=== PATIENT | male | born 1980 | race African-American/Black ===

== ENCOUNTER 2017-11-22 10:07 | Emergency (ER) | payer SELFPAY ==
[~2017-11-22] VITALS: Ht 188 cm; Wt 113.4 kg
[~2017-11-22 10:07] MED LIST: ALPR1TAB2
--- NOTE | 2017-11-22 10:08 | NUR ---
PT BIBA TO BED 2.
[2017-11-22 10:09] VITALS: BP_SYST 112; BP_SYST 147; BP_SYST 192; BP_DIAS 112; BP_DIAS 54; BP_DIAS 85
--- NOTE | 2017-11-22 10:12 | NUR ---
37M BIBA C/O LEFT FLANK PAIN, SHARP, NON-RADIATING, 10/10 X THIS MORNING; PER [facility], PT D/C FROM [facility] FOR RT FLANK PAIN THIS MORNING; PT STATES NO N/V/D AT THIS TIME; PT AA&OX4, BL LUNG SOUNDS CLEAR, RR EVEN/UNLABORED, SKIN IS WARM/DRY/INTACT AT THIS TIME; PT RESTING IN BED WITH HOB ELEVATED AND IN LOWEST POSITION; POSITIONED FOR COMFORT; ER MD MADE AWARE OF STATUS. WILL CONTINUE TO MONITOR.
[2017-11-22] MEDS ORDERED: NACL 0.9% 1,000 ML IV ONE (10:15)
[2017-11-22] MEDS ORDERED: KETOROLAC 30 MG/ML VIAL IVP ONE (10:15)
--- NOTE | 2017-11-22 10:17 | NUR ---
ER MD DR. MCGARRY EVALUATING PT AT BEDSIDE.
--- NOTE | 2017-11-22 10:40 | NUR ---
Cornelia springer in ED - 11/22/17 at 1048 by MED1 PT TAKEN TO CT VIA W/C ACCOMPANIED BY PACKAGING CLERK.
[2017-11-22 10:44] LABS: BASOPHILS # (AUTO) 0.3 K/uL (0.00-0.22); BASOPHILS % (AUTO) 2.7 % (0.0-2.0); EOSINOPHILS # (AUTO) 0.3 K/uL (0-0.4); EOSINOPHILS % (AUTO) 2.7 % (0.0-4.0); HEMATOCRIT 39.3 % (36-52); HEMOGLOBIN 12.6 g/dL (12.0-18.0); LYMPHOCYTES % (AUTO) 20.4 % (20.5-51.1); MEAN CORPUSCULAR HEMOGLOBIN 27 pg (27-31); MEAN CORPUSCULAR HGB CONC 32 g/dL (33-37); MEAN CORPUSCULAR VOLUME 85 fL (80-94); MONOCYTES # (AUTO) 1.3 K/uL (0.8-1.0); MONOCYTES % (AUTO) 13.2 % (1.7-9.3); NEUTROPHILS # (AUTO) 6.1 K/uL (1.8-7.7); PLATELET COUNT (AUTO) 257 K/uL (140-450); RED BLOOD CELL COUNT(AUTO) 4.65 MIL/uL (4.20-6.10)
[2017-11-22 10:53] LABS: ANION GAP 12.4 (8-16); CARBON DIOXIDE 27.4 mmol/L (21-32); CREATININE 1.4 mg/dL (0.7-1.3); POTASSIUM 3.8 mmol/L (3.5-5.1)
[2017-11-22 11:00] LABS: ALBUMIN 4.1 g/dL (3.4-5.0); TOTAL BILIRUBIN 1.3 mg/dL (0.0-1.0)
--- NOTE | 2017-11-22 11:03 | NUR ---
PT TAKEN TO CT VIA W/C ACCOMPANIED BY VOCATIONAL NURSING INSTRUCTOR.
[2017-11-22] MEDS ORDERED: MORPHINE SULFATE 4 MG/ML SYR IVP ONE (11:30)
--- NOTE | 2017-11-22 12:10 | NUR ---
IV removed, catheter intact and site benign. Applied folded 4x4 gauze and tape to stop bleeding. PT TOLERATED PROCEDURE WELL.
[2017-11-22 12:12] VITALS: BP 115/59
--- NOTE | 2017-11-22 12:12 | NUR ---
Patient discharged with v/s stable. Written and verbal after care instructions given and explained. Patient alert, oriented and verbalized understanding of instructions. Ambulatory with steady gait. All questions addressed prior to discharge. ID band removed. Patient advised to follow up with PMD. Rx of FLOMAX 0.4MG CAP, MOTRIN 800MG TAB, NORCO 5MG-325MG TAB given. Patient educated on indication of medication including possible reaction and side effects. Opportunity to ask questions provided and answered.
== END 2017-11-22 12:12 | disposition home or self-care (01) ==
LOC: MED 10:07
DX: N20.0 Calculus of kidney (principal); F17.210 Nicotine dependence, cigarettes, uncomplicated; Z79.899 Other long term (current) drug therapy
CPT/HCPCS: 36415; 74176; 80053; 81002; 83690; 85025; 96374; 96375; 99285; J1885; J2270; J7030

== ENCOUNTER 2019-10-02 04:29 | Emergency (ER) | payer OTHER ==
[~2019-10-02] VITALS: Ht 188 cm; Wt 125.6 kg
[2019-10-02 04:30] VITALS: BP 111/53
--- NOTE | 2019-10-02 05:30 | NUR ---
ASSESSMENT COMPLETED AT BEDSIDE. PATIENT SITTING UP IN BED. BED LOW AND LOCKED. BIB SELF REPORTING BILATERAL EYE PAIN AND BURNING WITH REDNESS FOR THREE DAYS WORSE TODAY. STATES HE HAS HAD DISCHARGE FROM BOTH EYES WELL. STATES HE HAS ALSO HAD A COLD AND CONGESTION. COUGHING UP YELLOW SPUTUM. NO CHANGE IN VISION STATED. PERRL. -NVD, CP, SOB, FEVERS REPORTED.
--- NOTE | 2019-10-02 05:32 | NUR ---
PT AMBULATED TO ER BED 05
--- NOTE | 2019-10-02 07:17 | NUR ---
Dr. Reynolds is evaluating the patient at bedside.
--- NOTE | 2019-10-02 07:22 | NUR ---
39 Y/O M C/C OF RED EYES X4 DAYS. PER PT DID NOT TOUCH OR EAT ANYTHING. PT NKA. NO MEDICAL HX. NO RX. NO V/D/N. SIDE RAIL X1.
--- NOTE | 2019-10-02 07:29 | NUR ---
OBTAINED REPORT FROM AINSLEY VAZQUEZ FOR CONTINUITY OF CARE
[2019-10-02 07:52] VITALS: BP 134/76
--- NOTE | 2019-10-02 07:52 | NUR ---
Patient discharged with v/s stable. Written and verbal after care instructions given and explained. Patient alert, oriented and verbalized understanding of instructions. Ambulatory with steady gait. All questions addressed prior to discharge. ID band removed. Patient advised to follow up with PMD. Rx of ERYTHROMYCIN, CLARITIN given. Patient educated on indication of medication including possible reaction and side effects. Opportunity to ask questions provided and answered.
== END 2019-10-02 07:52 | disposition home or self-care (01) ==
LOC: MED 04:29
DX: H10.89 Other conjunctivitis (principal); B96.89 Other specified bacterial agents as the cause of diseases classified elsewhere; Z79.899 Other long term (current) drug therapy
CPT/HCPCS: 99283

== ENCOUNTER 2020-10-08 00:36 | Emergency (ER) | payer OTHER ==
[~2020-10-08] VITALS: Ht 188 cm; Wt 113.4 kg
[2020-10-08 01:15] VITALS: BP 134/87
--- NOTE | 2020-10-08 01:18 | NUR ---
TO LOBBY A/W BED AMBULATORY
--- NOTE | 2020-10-08 01:20 | NUR ---
PATIENT LEFT WITHOUT BEING SEEN BY DR. NEWELL. NO FURTHER CARE PROVIDED FOR PATIENT.
== END 2020-10-08 01:20 | disposition left against medical advice (07) ==
LOC: MED 00:36
DX: M79.601 Pain in right arm (principal); Z53.21 Procedure and treatment not carried out due to patient leaving prior to being seen by health care provider

== ENCOUNTER 2022-09-27 16:13 | Emergency (ER) | payer OTHER ==
[~2022-09-27] VITALS: Ht 188 cm; Wt 127.9 kg
[2022-09-27 16:40] VITALS: BP 137/91
[2022-09-27] MEDS ORDERED: CYCLOBENZAPRINE 10 MG TAB PO ONE (17:05)
[2022-09-27] MEDS ORDERED: KETOROLAC 60 MG/2 ML VIAL IM ONE ×2 (17:05→18:32)
[2022-09-27] MEDS ORDERED: NAPR-1560 PO (18:13)
[2022-09-27] MEDS ORDERED: CYCLOBENZAPRINE 10 MG TAB ONE (18:33)
--- NOTE | 2022-09-27 18:37 | NUR ---
SLING APPLIED TO R ARM
--- NOTE | 2022-09-27 19:00 | NUR ---
Patient discharged with v/s stable. Written and verbal after care instructions given. Patient alert, oriented and verbalized understanding of instructions. Ambulatory with steady gait. All questions addressed prior to discharge. ID band removed. Patient advised to follow up with PMD. Rx of NAPROXEN given. Opportunity to ask questions provided and answered.
== END 2022-09-27 19:00 | disposition home or self-care (01) ==
LOC: MED 16:13
DX: M19.011 Primary osteoarthritis, right shoulder (principal); Z79.899 Other long term (current) drug therapy
CPT/HCPCS: 73030; 96372; 99283; J1885

== ENCOUNTER 2022-11-04 03:35 | Emergency (ER) | payer OTHER ==
[~2022-11-04] VITALS: Ht 188 cm; Wt 131.5 kg
[~2022-11-04 03:35] MED LIST changes: +NAPR-1560 PO
[2022-11-04 03:54] VITALS: BP 141/90
--- NOTE | 2022-11-04 03:57 | NUR ---
TO LOBBY A/W BED AMBULATORY
--- NOTE | 2022-11-04 05:15 | NUR ---
COVID-19 and flu swabs collected and sent to lab.
--- NOTE | 2022-11-04 05:18 | NUR ---
Patient BIB by family/friend. C/O congestion x 2 days. Patient reported, had cough, congestion for 2 days, no fever, no SOB. Patient request for STI testing. Hx Arthritis
--- NOTE | 2022-11-04 06:20 | NUR ---
Dr. Sultana examining patient.
[2022-11-04] MEDS ORDERED: cefTRIAXone 500 MG in LIDOCAINE MPF 1% 1 ML IM ONE (06:30)
[2022-11-04] MEDS ORDERED: KETOROLAC 15 MG/ML VIAL IM ONE (06:30)
--- NOTE | 2022-11-04 06:32 | NUR ---
urine sample collected and sent to lab.
[2022-11-04] MEDS ORDERED: cefTRIAXone 500 MG VIAL ONE (06:33)
[2022-11-04] MEDS ORDERED: LIDOCAINE MPF 1% 5 ML ONE (06:33)
[2022-11-04 06:43] LABS: APPEARANCE,URINE CLEAR (CLEAR); BILIRUBIN,URINE NEGATIVE (NEGATIVE); BLOOD, URINE NEGATIVE (NEGATIVE); COLOR,URINE YELLOW (YELLOW); LEUKOCYTE ESTERASE ,URINE NEGATIVE (NEGATIVE); NITRITE, URINE NEGATIVE (NEGATIVE); PH,URINE 5.5 (5.0-9.0); UGLUCOSE NEGATIVE (NEGATIVE)
--- NOTE | 2022-11-04 06:47 | NUR ---
X-Ray at bedside.
--- NOTE | 2022-11-04 07:21 | NUR ---
Received report from AINSLEY Amaya. Assumed care at this time.
[2022-11-04] MEDS ORDERED: DOXY-690 PO (07:25)
[2022-11-04] MEDS ORDERED: NAPR-1560 PO (07:25)
[2022-11-04 08:00] VITALS: BP 139/89
--- NOTE | 2022-11-04 08:00 | NUR ---
Patient discharged with v/s stable. Written and verbal after care instructions ABOUT STD EXPOSURE AND ARTHRITIS given and explained. Patient alert, oriented and verbalized understanding of instructions. Ambulatory with steady gait. All questions addressed prior to discharge. ID band removed. Patient advised to follow up with PMD. Rx of NAPROXEN AND VIBRAMYCIN given. Patient educated on indication of medication including possible reaction and side effects. Opportunity to ask questions provided and answered.
== END 2022-11-04 08:00 | disposition home or self-care (01) ==
LOC: MED 03:35
DX: J06.9 Acute upper respiratory infection, unspecified (principal); Z20.822 Contact with and (suspected) exposure to COVID-19; M13.841 Other specified arthritis, right hand; F17.290 Nicotine dependence, other tobacco product, uncomplicated; Z20.2 Contact with and (suspected) exposure to infections with a predominantly sexual mode of transmission; Z79.899 Other long term (current) drug therapy
CPT/HCPCS: 73130; 81003; 87426; 87491; 87804; 96372; 99284; J0696; J1885; J2001; Q0092